=== PATIENT | male | born 1965 | race Caucasian/White ===

== ENCOUNTER 2021-04-03 19:17 | Emergency (ER) | payer OTHER ==
[2021-04-03] MEDS ORDERED: Bacitracin Oint 1 GM U/D Packet TOP ONE (19:45)
--- NOTE | 2021-04-03 21:03 | ER ---
REASON FOR EMERGENCY ROOM VISIT: Mello, left ring finger. HISTORY: This is a 55-year-old man, came in accompanied by a friend after he impaled 1 hook of a treble hook on his left ring finger while fishing. The patient's last tetanus booster was within the past 5 years. ALLERGIES: NONE TO MEDICATIONS. PHYSICAL EXAMINATION: He has a treble hook impaled past the brandin on the volar aspect of his distal phalanx of the left ring finger. FURTHER EMERGENCY ROOM COURSE: The area was washed with alcohol and approximately 1.5 mL of 1% xylocaine without epinephrine was used for local anesthesia. The proximal most end of the treble hook was cut off and then hook was driven through the skin and subsequently removed without difficulty. The area was washed with surgical soap and antibacterial ointment was applied after which it was dressed. Symptoms and signs of infection and wound care were discussed with him. He understands and agrees. All questions were answered. AMRITA/LUIZ /[id number]
== END 2021-04-03 20:00 | disposition home or self-care (01) ==
LOC: LB.ED 19:17
DX: S60.455A Superficial foreign body of left ring finger, initial encounter (principal); W45.8XXA Other foreign body or object entering through skin, initial encounter
CPT/HCPCS: 99283